=== PATIENT | female | born 1970 | race American Indian/Alaskan Native ===

== ENCOUNTER 2018-09-03 12:04 | Emergency (ER) | payer MEDICAID ==
--- NOTE | 2018-09-03 12:30 | Emergency Department Report ---
Blank Doc - Documentation Documentation: pt states after eating she began having upper abd pain that began last night +N/V- 10 episodes "having gallbladder attack" no diarrhea last BM this morning which was normal no fever PMHx gallstones pt has seen a general surgeon, states that she does not want to have the gal lbladder removed PMHx gastric bypass PMHx TBI non smoker occ drinker no drug use
[2018-09-03 12:31] VITALS: BP 123/77
[2018-09-03] MEDS ORDERED: PEPCID IV ONE (13:13)
[2018-09-03] MEDS ORDERED: ZOFRAN IV ONE (13:13)
[2018-09-03] MEDS ORDERED: NACL 0.9% 1000 ML 1,000 ML IV ONE (13:13)
[2018-09-03] MEDS ORDERED: TORADOL IV ONE (13:13)
[2018-09-03 13:26] LABS: Bacteria,Urine 1+ /HPF (Negative); Bilirubin,Urine NEG (Negative); Blood,Urine SM (Negative); Color,Urine Yellow (Yellow); Mucus,Urine FEW /HPF; Protein,Urine <15 mg/dL mg/dL (Negative); WBC,Urine < 1.0 /HPF (0.0-6.0)
[2018-09-03 13:27] LABS: HCG Qualitative,Urine Negative (Negative)
[2018-09-03 13:39] LABS: Alanine Aminotransferase 10 units/L (7-56); Albumin 3.8 g/dL (3.9-5); BUN/Creatinine Ratio 21; Blood Urea Nitrogen 15 mg/dL (7-17); Calcium 8.9 mg/dL (8.4-10.2); Hemolysis Index 2
[2018-09-03 13:43] LABS: Basophils % (Auto) 0.5 % (0.0-1.8); Eosinophils # (Auto) 0.1 K/mm3 (0.0-0.4); Hemoglobin 13.2 gm/dl (10.1-14.3); Lymphocytes # (Auto) 1.5 K/mm3 (1.2-5.4); Lymphocytes % (Auto) 16.1 % (13.4-35.0); Mean Corpuscular HGB Conc 33 % (30-34); Mean Corpuscular Volume 95 fl (79-97); Monocytes # (Auto) 0.4 K/mm3 (0.0-0.8); Monocytes % (Auto) 4.8 % (0.0-7.3); Platelet Count 182 K/mm3 (140-440); Red Cell Distribution Width 14.5 % (13.2-15.2)
--- NOTE | 2018-09-03 13:53 | Ultrasound Report ---
ULTRASOUND ABDOMEN LIMITED: TECHNIQUE: Transabdominal ultrasound with color Doppler interrogation. HISTORY: right upper quadrant abdominal pain. COMPARISON: none. FINDINGS: LIVER: Normal. BILIARY SYSTEM: 2 or 3 millimetric shadowing gallstones are identified in the gallbladder. No evidence for abnormal distention, wall thickening or surrounding fluid. The CBD measures 5 mm. PANCREAS: Normal. RIGHT KIDNEY: Normal. PROXIMAL AORTA: Normal. ASCITES: None. IMPRESSION: Cholelithiasis. No evidence for acute cholecystitis.
--- NOTE | 2018-09-03 16:14 | Emergency Department Report ---
ED Abdominal Pain HPI - General Chief Complaint: Abdominal Pain Stated Complaint: GALL BLADDER ATTACK/ CHEST CLOGGED Time Seen by Provider: 09/03/18 12:26 Source: patient Mode of arrival: Ambulatory Limitations: No Limitations - History of Present Illness Initial Comments: Patient is a 47-year-old female who states she has some epigastric pain starting from last night. Patient ate some chicken last night and believes a piece stuck. Patient has had several episodes of nausea vomiting but she can't keep down her own saliva and is drank coffee and tea this morning. Patient does have a history of gallstones was not followed up with general surgery. Patient has some discomfort in the epigastrium that she states is a burning full sensation. Severity scale (0 -10): 3 - Related Data Previous Rx's Medication Instructions Recorded Last Taken Type Dicyclomine [Bentyl] 20 mg PO QID #10 tablet 09/03/18 Unknown Rx Famotidine [Pepcid] 40 mg PO QHS #10 tablet 09/03/18 Unknown Rx Ondansetron [Zofran Odt] 4 mg PO Q8HR #10 tab.rapdis 09/03/18 Unknown Rx traMADol [Ultram] 50 mg PO Q6HR PRN #12 tablet 09/03/18 Unknown Rx Allergies Allergy/AdvReac Type Severity Reaction Status Date / Time No Known Allergies Allergy Unverified 09/03/18 12:05 ED Review of Systems ROS: Stated complaint: GALL BLADDER ATTACK/ CHEST CLOGGED Other details as noted in HPI Comment: All other systems reviewed and negative ED Past Medical Hx - Past Medical History Previous Medical History?: No - Surgical History Additional Surgical History: TUMOR REMOVED LEFT SHOULDER GASTRIC BY PASS CARPEL TUNNEL RIGHT HAND - Social History Smoking Status: Never Smoker - Medications Home Medications: Home Medications Medication Instructions Recorded Confirmed Last Taken Type Dicyclomine [Bentyl] 20 mg PO QID #10 tablet 09/03/18 Unknown Rx Famotidine [Pepcid] 40 mg PO QHS #10 tablet 09/03/18 Unknown Rx Ondansetron [Zofran Odt] 4 mg PO Q8HR #10 tab.rapdis 09/03/18 Unknown Rx traMADol [Ultram] 50 mg PO Q6HR PRN #12 tablet 09/03/18 Unknown Rx ED Physical Exam - General Limitations: No Limitations General appearance: alert, in no apparent distress - Head Head exam: Present: atraumatic, normocephalic - Eye Eye exam: Present: normal appearance, PERRL - ENT ENT exam: Present: mucous membranes moist - Neck Neck exam: Present: normal inspection - Respiratory Respiratory exam: Present: normal lung sounds bilaterally. Absent: respiratory distress, wheezes, rales, rhonchi - Cardiovascular Cardiovascular Exam: Present: regular rate, normal rhythm. Absent: systolic murmur, diastolic murmur, rubs, gallop - GI/Abdominal GI/Abdominal exam: Present: soft, tenderness (epigastric tenderness), normal bowel sounds. Absent: distended, guarding, rebound - Extremities Exam Extremities exam: Present: normal inspection - Back Exam Back exam: Present: normal inspection - Neurological Exam Neurological exam: Present: alert, oriented X3 - Psychiatric Psychiatric exam: Present: normal affect, normal mood - Skin Skin exam: Present: warm, dry, intact, normal color. Absent: rash ED Course Vital Signs 09/03/18 12:27 Temperature 97.7 F Pulse Rate 68 Respiratory 20 Rate Blood Pressure 123/77 O2 Sat by Pulse 95 Oximetry ED Medical Decision Making - Lab Data Result diagrams: 09/03/18 13:04 09/03/18 13:04 Lab Results 09/03/18 09/03/18 09/03/18 Range/Units 13:03 13:04 13:04 WBC 9.1 (4.5-11.0) K/mm3 RBC 4.20 (3.65-5.03) M/mm3 Hgb 13.2 (10.1-14.3) gm/dl Hct 40.0 (30.3-42.9) % MCV 95 (79-97) fl MCH 31 (28-32) pg MCHC 33 (30-34) % RDW 14.5 (13.2-15.2) % Plt Count 182 (140-440) K/mm3 Lymph % (Auto) 16.1 (13.4-35.0) % [place] % (Auto) 4.8 (0.0-7.3) % Eos % (Auto) 1.0 (0.0-4.3) % Baso % (Auto) 0.5 (0.0-1.8) % Lymph # 1.5 (1.2-5.4) K/mm3 [place] # 0.4 (0.0-0.8) K/mm3 Eos # 0.1 (0.0-0.4) K/mm3 Baso # 0.0 (0.0-0.1) K/mm3 Seg Neutrophils % 77.6 H (40.0-70.0) % Seg Neutrophils # 7.1 (1.8-7.7) K/mm3 Sodium 138 (137-145) mmol/L Potassium 4.4 (3.6-5.0) mmol/L Chloride 101.8 (98-107) mmol/L Carbon Dioxide 25 (22-30) mmol/L Anion Gap 16 mmol/L BUN 15 (7-17) mg/dL Creatinine 0.7 (0.7-1.2) mg/dL Estimated GFR > 60 ml/min BUN/Creatinine Ratio 21 % Glucose 96 (65-100) mg/dL Calcium 8.9 (8.4-10.2) mg/dL Total Bilirubin 0.40 (0.1-1.2) mg/dL AST 15 (5-40) units/L ALT 10 (7-56) units/L Alkaline Phosphatase 93 (35-129) units/L Total Protein 6.7 (6.3-8.2) g/dL Albumin 3.8 L (3.9-5) g/dL Albumin/Globulin Ratio 1.3 % Lipase 30 (13-60) units/L Urine Color Yellow (Yellow) Urine Turbidity Clear (Clear) Urine pH 6.0 (5.0-7.0) Ur Specific [place] 1.020 (1.003-1.030) Urine Protein <15 mg/dl (Negative) mg/dL Urine Glucose (UA) Neg (Negative) mg/dL Urine Ketones 20 (Negative) mg/dL Urine Blood Sm (Negative) Urine Nitrite Neg (Negative) Urine Bilirubin Neg (Negative) Urine Urobilinogen 2.0 (<2.0) mg/dL Ur Leukocyte Esterase Neg (Negative) Urine WBC (Auto) < 1.0 (0.0-6.0) /HPF Urine RBC (Auto) 8.0 (0.0-6.0) /HPF U Epithel Cells (Auto) 2.0 (0-13.0) /HPF Urine Bacteria (Auto) 1+ (Negative) /HPF Urine Mucus Few /HPF Urine HCG, Qual Negative (Negative) - Radiology Data [facility] [address] [place] [address] Ultrasound Report Signed Patient: DEONNA GARCIA MR#: [id number] : 1970 Acct:[id number] Age/Sex: 47 / F ADM Date: 09/03/18 Loc: ED Attending Dr: Ordering Physician: JENNIFER WADDELL Date of Service: 09/03/18 Procedure(s): US abdomen limited Accession Number(s): [id number] cc: JENNIFER WADDELL ULTRASOUND ABDOMEN LIMITED: TECHNIQUE: Transabdominal ultrasound with color Doppler interrogation. HISTORY: right upper quadrant abdominal pain. COMPARISON: none. FINDINGS: LIVER: Normal. BILIARY SYSTEM: 2 or 3 millimetric shadowing gallstones are identified in the gallbladder. No evidence for abnormal distention, wall thickening or surrounding fluid. The CBD measures 5 mm. PANCREAS: Normal. RIGHT KIDNEY: Normal. PROXIMAL AORTA: Normal. ASCITES: None. IMPRESSION: Cholelithiasis. No evidence for acute cholecystitis. Transcribed By: TTR Dictated By: AVEL THORNTON JR, MD Electronically Authenticated By: AVEL THORNTON JR, MD Signed Date/Time: 09/03/18 1348 DD/ 1347 TD/TT: 09/03/18 1348 - Medical Decision Making Patient is a 47-year-old [place] female who is presenting with some epigastric discomfort and believes there is a piece of chicken stuck in her esophagus. Patient actually is tolerating by mouth making esophageal obstruction much less likely. Recent was given meds for symptomatically relief and did have improvement of her symptoms. The patient likely with a biliary colic secondary to her multiple gallstones. Patient be discharged home with medications for symptomatic relief for the next several days and follow-up with Gen. surgery Critical care attestation.: If time is entered above; I have spent that time in minutes in the direct care of this critically ill patient, excluding procedure time. ED Disposition Clinical Impression: Biliary colic Disposition: DC-01 TO HOME OR SELFCARE Is pt being admited?: No Does the pt Need Aspirin: No Condition: Stable Instructions: Abdominal Pain (ED), Biliary Colic (ED) Referrals: KIP FISCHER MD [Staff Physician] - 3-5 Days Time of Disposition: 16:14
== END 2018-09-03 16:40 | disposition home or self-care (01) ==
LOC: ED 12:04
DX: K80.50 Calculus of bile duct without cholangitis or cholecystitis without obstruction (principal)
CPT/HCPCS: 36415; 76705; 80053; 81001; 81025; 83690; 85025; 96361; 96374; 96375; 99284; J1885; J2405; J7030

== ENCOUNTER 2019-01-21 15:51 | Outpatient (CLI) | payer OTHER ==
--- NOTE | 2019-01-21 17:06 | XRay Report ---
XR spine lumbosacral 2-3V / LUMBAR SPINE RADIOGRAPHS INDICATION: M54.5 LOW BACK PAIN. COMPARISON: None. FINDINGS: AP and lateral radiographs demonstrate normal lumbar vertebral body stature, alignment and disc heights. Lower thoracic spine degenerative changes as spurring noted as also slight anterosuperi or corner slightly sclerotic wedging of probably T12, exact age though indeterminate on this exam [place] ne. Normal imaged SI joints. Nonobstructive bowel gas pattern. Stool throughout colon/possible consti pation. Clear visualized lung bases. Few postsurgical changes about the GE junction incidentally seen . IMPRESSION: No acute lumbar spine radiographic abnormality with few other findings, as detailed above . Please also correlate clinically and with prior relevant imaging, if available. Thank you for the opportunity to participate in this patient's care. Signer Name: Vidhi Perez Signed: 01/21/2019 5:01 PM Workstation Name: [id number]
== END 2019-01-21 15:52 | disposition home or self-care (01) ==
LOC: XRAY 15:51
PROVIDERS: ATTEND Internal Medicine
DX: Z02.71 Encounter for disability determination (principal); M54.5 Low back pain; M47.812 Spondylosis without myelopathy or radiculopathy, cervical region
CPT/HCPCS: 72100